=== PATIENT | female | born 1995 | race Two or more races ===

== ENCOUNTER 2019-03-13 12:14 | Emergency (ER) | payer MEDICAID, OTHER ==
[~2019-03-13] VITALS: Ht 167.6 cm; Wt 90.0 kg
[2019-03-13] MEDS ORDERED: KETOROLAC 60MG/2ML VIAL IM ONE (15:00)
[2019-03-13 16:50] VITALS: BP 124/62
== END 2019-03-13 17:07 | disposition home or self-care (01) ==
LOC: ER 12:14
DX: S09.8XXA Other specified injuries of head, initial encounter (principal); W20.8XXA Other cause of strike by thrown, projected or falling object, initial encounter; Y93.89 Activity, other specified; Y92.59 Other trade areas as the place of occurrence of the external cause; Y99.0 Civilian activity done for income or pay
CPT/HCPCS: 81025; 96372; 99283; J1885